=== PATIENT | female | born 1930 | race Caucasian/White ===

== ENCOUNTER 2016-12-06 19:22 | Emergency (ER) | payer MEDICARE, OTHER ==
[~2016-12-06 19:22] MED LIST: LOSA100T PO; METO25TA6 PO
[2016-12-06 22:26] VITALS: BP 180/80; PULSE 66; RESP 18; TEMP 98; O2SAT 98
[2016-12-06 22:40] VITALS: PULSE 58
[2016-12-07] VITALS (9 sets, daily range): BP systolic 134–190; BP diastolic 63–74; PULSE 59–78; RESP 16–20; TEMP 97.3–98.2; O2SAT 97–98
[2016-12-07] MEDS: cloNIDine HCL 0.1 MG TAB PO PRN ×2 (00:51→13:42)
[2016-12-07 03:25] LABS: CREATINE KINASE 170 U/L (26-192)
[2016-12-07 03:37] LABS: CKMB 1.3 NG/ML (0.5-3.6)
[2016-12-07] MEDS ORDERED: LOSARTAN 50 MG TAB PO SCH (09:00)
[2016-12-07] MEDS ORDERED: METOPROLOL SUCCINATE 25 MG EXTENDED RELEASE TAB PO SCH (09:00)
--- NOTE | 2016-12-07 09:00 | HHI.HP ---
HPI Primary Care Physician Non-Staff Chief Complaint Chest pain History of Present Illness This is a 86-year-old female that presents to ED in [place] to evaluate a chest discomfort and was also transported here for further evaluation. She [place]- speaking. She had 3 days of intermittent discomfort in left chest. It will last a split second. Almost felt as if it was a palpitation. She had no associated shortness breath nausea or diaphoresis. Denies prior cardiac workup. Admits to hypertension but otherwise denies other medical issues. She lives with her . Review of Systems General: Patient denies fevers, chills recent, and recent travel HEENT: Patient denies headache, sore throat, difficulty swallowing. Cardiovascular: Has the chest discomfort as mentioned above. [place] as if she had a palpitation but has a hard time describing it. No syncope. Respiratory: Denies shortness of breath or inspirational chest discomfort. Denies coughing wheezing or hemoptysis. GI: Patient denies nausea, vomiting, diarrhea, abdominal pain, bloody stools. Musculoskeletal: Patient denies joint pain or edema. Denies calf pain or edema. Neurovascular: Patient denies numbness, tingling, weakness in extremities. Denies headache. Endocrine: Denies polyuria and polydipsia. Hematologic: Denies easy bruising. Skin: Denies rash or itching. Past Family Social History Allergies: Coded Allergies: Codeine (Verified Allergy, Severe, Nausea/Vomiting, 12/06/16) Past Medical History Hypertension. Denies hyperlipidemia, diabetes, and known CAD. Past Surgical History Hysterectomy per Reported Medications Reported Meds & Active Scripts Active Reported Metoprolol Succinate ER 24 HR (Metoprolol Succinate) 25 Mg Tab 25 Mg PO DAILY Losartan (Losartan Potassium) 100 Mg Tab 100 Mg PO DAILY Active Ordered Medications Current Medications Medications (Trade) Dose Ordered Sig/Demetrius Route Start Time Stop Time Status Last Admin (Catapres) 0.1 mg Q6H PRN PO 12/07/16 00:00 12/07/16 00:51 (Cozaar) 100 mg DAILY PO 12/07/16 09:00 (Toprol Xl) 25 mg DAILY PO 12/07/16 09:00 Family History Family history is unknown. Social History Patient does not smoke, drink alcohol, or use illicit drugs. She lives with her . Physical Exam Vital Signs Vital Signs Date Time Temp Pulse Resp B/P Pulse Ox O2 Delivery O2 Flow Rate FiO2 12/07/16 08:05 97.3 62 16 144/64 97 12/07/16 04:53 98.1 66 18 143/68 98 12/07/16 04:33 78 12/06/16 22:40 58 12/06/16 22:26 98.0 66 18 180/80 98 Physical Exam GENERAL: This is a well-nourished, well-developed patient, in no apparent distress. Patient speaks in clear complete sentences. Patient is pleasant. HEENT: Head is atraumatic and normocephalic. Neck is supple without lymphadenopathy and trachea is midline. No JVD or carotid bruits. CARDIOVASCULAR: Regular rate and rhythm without murmurs, gallops, or rubs. RESPIRATORY: Clear to auscultation. Breath sounds equal bilaterally. No wheezes , rales, or rhonchi. Chest wall is nontender. No use of accessory muscles. GASTROINTESTINAL: Abdomen is nontender, nondistended. Abdomen soft. No obvious pulsatile mass or bruit. No CVA tenderness. Strong femoral pulses bilaterally. Normal bowel sounds in all quadrants. MUSCULOSKELETAL: Patient is moving upper and lower extremities freely. No calf tenderness or edema, no Homans sign. Strong pulses in upper and lower extremities. NEUROLOGICAL: Patient is alert and oriented. Cranial nerves 2-12 are grossly intact. No focal deficits and speech is clear. SKIN: No rash and turgor is normal. Laboratory Laboratory Tests Test 12/06/16 12/07/16 22:55 02:44 Troponin I LESS THAN 0.02 LESS THAN 0.02 Total Creatine Kinase 170 Creatine Kinase MB 1.3 Imaging Chest x-ray reveals nothing acute. Course EKGs have a bundle branch block. We do not know if this is new or old. Assessment and Plan Assessment and Plan * Atypical chest pain: Patient has had serial cardiac enzymes and EKGs for ruling out purposes. She has been seen by Dr. Nathan Garcia of cardiology in the chest pain center and will undergo a Lexiscan. She'll be discharged home if her Lexiscan is nonischemic. * Hypertension: Continue current medications. Patient is stable at this time but she is agreeable to this plan. Manuel Miller Dec 07, 2016 09:00
[2016-12-07] MEDS ORDERED: REGADENOSON INJ 0.4 MG/5 ML SYR ONE (09:34)
--- NOTE | 2016-12-07 10:29 | RADRPT ---
EXAM DATE/TIME: 12/07/2016 08:32 [facility] COMPARISON: No previous studies available for comparison. INDICATIONS : Left sided chest pain radiating to left arm. Angina. DOSE: 25.4 mCi Tc99m Myoview at stress. 8.5 mCi Tc99m Myoview at rest. 0.4 mg Lexiscan STRESS SYMPTOMS: Heart racing. EJECTION FRACTION: > 70% MEDICAL HISTORY : Hypertension. Gastroesophageal reflux disease. SURGICAL HISTORY : Cholecystectomy. Hysterectomy. ENCOUNTER: Initial ACUITY: 1 day PAIN SCALE: 4/10 LOCATION: Left chest TECHNIQUE: The patient underwent pharmacologic stress with infusion of prescribed dose. Continuous ECG tracing was monitored during stress. Gated SPECT imaging was performed after stress and conventional SPECT i maging was performed at rest. The examination was performed on a SPECT/CT scanner, both attenuation and non-corrected datasets were reviewed. FINDINGS: DISTRIBUTION: The maximum perfused segment at stress is in the anterolateral wall. PERFUSION STUDY: The pattern of perfusion at stress is within normal limits. GATED STUDY: There is intact wall motion and thickening without hypokinetic or dyskinetic segments. CONCLUSION: 1. No reversible perfusion defect to indicate stress-induced myocardial ischemia identified. RISK CATEGORY: Low (<1% Annual Mortality Rate) Ramon Penaloza MD on December 07, 2016 at 10:26 Board Certified Radiologist. This report was verified electronically.
[2016-12-07] MEDS ORDERED: SODIUM CHLOR 0.9% 250 ML INJ 250 ML IV SCH (11:15)
[2016-12-07 12:43] LABS: BICARBONATE 26.3 MEQ/L (21.0-32.0); POTASSIUM 3.9 MEQ/L (3.5-5.1)
[2016-12-07] MEDS ORDERED: IOHEXOL 350 MG/ML 10 ML VIAL (for RAD DIAG) IV ONE (14:50)
--- NOTE | 2016-12-07 15:01 | EKG ---
Date Performed: 12/07/2016 Time Performed: 02:33:14 PTAGE: 86 years EKG: Sinus rhythm WITH FIRST DEGREE AV BLOCK LEFT BUNDLE BRANCH BLOCK ABNORMAL ECG NO PREVIOUS TRACING DOCTOR: Nathan Garcia Interpretating Date/Time 12/07/2016 14:59:46
--- NOTE | 2016-12-07 15:02 | EKG ---
Date Performed: 12/06/2016 Time Performed: 23:05:49 PTAGE: 86 years EKG: SINUS BRADYCARDIA WITH FIRST DEGREE AV BLOCK LEFT BUNDLE BRANCH BLOCK ABNORMAL ECG NO PREVIOUS TRACING DOCTOR: Nathan Garcia Interpretating Date/Time 12/07/2016 15:00:58
--- NOTE | 2016-12-07 15:04 | TR ---
Date Performed: 12/07/2016 Time Performed: 09:16:20 DOCTOR: Nathan Garcia DRUG LIST: CLINICAL HISTORY: CHEST PAIN REASON FOR TEST: CHEST PAIN REASON FOR ENDING: OBSERVATION: CONCLUSION: Left bundle branch block noted throughout tracing. nuclear imaging pending COMMENTS:
--- NOTE | 2016-12-07 15:23 | RADRPT ---
EXAM DATE/TIME: 12/07/2016 14:53 [facility] COMPARISON: No previous studies available for comparison. INDICATIONS : Chest pain and hypertension IV CONTRAST: 74 cc Omnipaque 350 (iohexol) IV RADIATION DOSE: 23.07 CTDIvol (mGy) MEDICAL HISTORY : Hypertension. Cardiovascular disease SURGICAL HISTORY : Hysterectomy. Mastectomy, left. ENCOUNTER: Initial ACUITY: 1 day PAIN SCALE: 8/10 LOCATION: chest TECHNIQUE: Volumetric scanning of the chest was performed using a pulmonary embolism protocol MIP images were re constructed. Using automated exposure control and adjustment of the mA and/or kV according to patien t size, radiation dose was kept as low as reasonably achievable to obtain optimal diagnostic quality images. FINDINGS: The examination is of good diagnostic quality. No pulmonary embolus is identified. The heart is enlarged. There is advanced atherosclerotic plaquing in the coronary arteries. There is no pericardial effusion. No significant hilar or mediastinal adenopathy is seen. The pulmonary parenchyma is clear. There is no axillary adenopathy. There degenerative changes throughout the thoracic spine. The visualized portions of upper abdomen are unremarkable. CONCLUSION: 1. No pulmonary embolus identified. 2. Advanced atherosclerotic coronary disease. 3. Mild cardiomegaly. Ramon Penaloza MD on December 07, 2016 at 15:18 Board Certified Radiologist. This report was verified electronically.
--- NOTE | 2016-12-07 15:32 | HHI.DCPOC ---
Discharge Care Plan Diagnosis: (1) Chest pain (2) Hypertension (3) Renal insufficiency Goals to Promote Your Health * To prevent worsening of your condition and complications * To maintain your health at the optimal level Directions to Meet Your Goals Take your medications as prescribed Follow your dietary instruction Follow activity as directed Keep your appointments as scheduled Take your immunizations and boosters as scheduled If your symptoms worsen call your PCP, if no PCP go to Urgent Care Center or Emergency Room Smoking is Dangerous to Your Health. Avoid second hand smoke Call the 24-hour hour crisis hotline for domestic abuse at Manuel Miller Dec 07, 2016 15:32
== END 2016-12-07 17:10 | disposition home or self-care (01) ==
LOC: NEDDLT 19:36 → UNDOADMOB 22:16 → NEPGCP 22:16 → UNDODISOB 12-07 17:10 → NEPG 12-07 17:10
DX: R07.89 Other chest pain (principal); I25.119 Atherosclerotic heart disease of native coronary artery with unspecified angina pectoris; I10 Essential (primary) hypertension; I45.4 Nonspecific intraventricular block; I44.0 Atrioventricular block, first degree; R94.31 Abnormal electrocardiogram [ECG] [EKG]; R00.1 Bradycardia, unspecified; I44.7 Left bundle-branch block, unspecified; Z79.899 Other long term (current) drug therapy
CPT/HCPCS: 71010; 71275; 76937; 78452; 80048; 80053; 82550; 82552; 83735; 84484; 85025; 85379; 85610; 85730; 93005; 93017; 99285; A9502; J2785; J7050; Q9967